=== PATIENT | male | born 1960 | race Caucasian/White ===

== ENCOUNTER 2025-02-07 12:40 | Emergency (ER) | payer OTHER, SELFPAY ==
[2025-02-07 12:47] VITALS: BP 123/93
[2025-02-07 13:03] VITALS: BMI 24.4
--- NOTE | 2025-02-07 13:18 | ED.GENMED ---
History of Present Illness
General
Chief Complaint: Head Injury
Source: patient
Exam Limitations: none
Time Seen by Provider: 02/07/25 13:04
Nursing documentation reviewed up to this point in time: agreed with
History of Present Illness
History of Present Illness:
Patient is a 65-year-old male who denies significant past medical history who presents to the emergency department accompanied by his son from home for evaluation of a head injury that occurred approximately 30 minute prior to arrival. Patient
reports that he was walking on the sidewalk and fell off of the edge accidentally. Patient reports that he did try to brace himself with his left arm but was unsuccessful in doing so and he hit his left forehead. Patient sustained a laceration to
the left forehead which is not actively bleeding. Patient reports some pain at the site. He denies headache otherwise, dizziness, vision changes such as blurry vision or double vision, neck pain, back pain, nausea, vomiting. Patient reports that
he does have some soreness to his left shoulder and left wrist but reports it is improving and he has full range of motion. Patient is unsure whether his tetanus is UTD. Patient denies taking medication for pain prior to arrival. Patient reports
he is getting on a plane to [facility] at 9pm tonight.
Past History
Past History
ED Past Medical History: None
ED Past Surgical History: Other (Excision of benign tumor left leg)
Social History
Tobacco: Non-smoker
Alcohol: Daily
Drug: None
Personal:
Review of Systems
Review of Systems
Allergies reviewed?: Yes
All Other Systems: ROS reviewed and negative except as documented in HPI and ROS
Constitutional: Reports no symptoms
EENT: Reports no symptoms
Respiratory: Reports no symptoms
Cardiac: Reports no symptoms
ABD/GI: Reports no symptoms
: Reports no symptoms
Musculoskeletal: Reports no symptoms
Skin: Reports other (laceration)
Neurological: Reports no symptoms; Denies dizzy or headache
Endocrine: Reports no symptoms
Hematologic/Lymphatic: Reports no symptoms
Psychiatric: Reports no symptoms
Phy Exam
General Physical Exam
General Presentation: well appearing and no apparent distress
General Skin: warm and dry
General Habitus: normal
General Mental: alert
General Hydration: appears well hydrated
ENT Exam
ENT Exam: EOMI, pharynx normal and normocephalic
Eye Exam
Eye Exam: PERRL, cornea clear and conjunctiva normal
Cardiovascular Exam
Cardiovascular Exam: regular rate/rhythm, no edema, no murmur and normal peripheral pulses
Pulmonary Exam
Pulmonary Exam: lungs clear, no respiratory distress, no rales, no crackles, no rhonchi, no stridor, no wheezing and no cough
Gastrointestinal Exam
Gastrointestinal Exam: non tender and soft
Neurological Exam
Neurological Exam: alert, oriented x3, no motor deficits and speech normal
Musculoskeletal Exam
Musculoskeletal Exam: full ROM and no edema
Skin Exam
Skin Exam: normal color, warm/dry, no rash, no petechia and other (0.5cm linear laceration just superior to the left eyebrow, mild oozing of blood)
Psychiatric Exam
Psychiatric Exam: normal mood/affect
Course
Orders/Labs/Results
Orders:
Orders
02/07/25 13:17
CT Head W/o Iv Contrast Urgent
Comment:
Reason For Exam: head injury, no LOC
Tetanus/Diphth/Acelpertussis [Adacel] 0.5 ml IM .ONCE ONE
Vital Signs
Initial and Last Documented VS:
Initial Vital Signs
Temp Pulse Resp BP Pulse Ox
98.3 F 74 18 123/93 98
02/07/25 12:47 02/07/25 12:47 02/07/25 12:47 02/07/25 12:47 02/07/25 12:47
Last Documented Vital Signs
Temp Pulse Resp BP Pulse Ox
98.3 F 74 18 123/93 98
02/07/25 12:47 02/07/25 12:47 02/07/25 12:47 02/07/25 12:47 02/07/25 13:20
Procedures
Laceration Closure
Left Forehead:
Status of Wound: clean
Description of Wound Edges: sharp
Preparation: cleaned with saline
Revision/Debridement: routine- no revision
Wound exploration: explored to base- no FB
Type of Closure: single layer closure
Skin Closure Material: other (surgical glue with one steri-strip)
*Pulse Oximetry
SaO2: 98
Oxygen Mode of Delivery: Room air
Patient hypoxic: no
*Critical Care Note
Total Time (30-74mins, 75-104mins- exclusive of procedures): Not Applicable
Update Note
Update Note:
65-year-old male presents to the emergency department for evaluation of a left forehead laceration sustained just prior to arrival. Patient did fall and hit his head. Patient is not anticoagulated and denies LOC. Patient also notes injury to his
left shoulder and wrist but reports he has full range of motion of both. On arrival, patient's vital signs are stable, he is afebrile. On examination, patient is very well-appearing, he is in no acute distress, his laceration is small, he has
underlying hematoma, he has no neurological deficits, he has full range of motion of the left upper extremity and is neurovascularly intact. I spoke with the patient about risks and benefits of CT of the head given his fall and head injury.
Patient states that he is getting on a plane to [facility] at 9 PM this evening. Therefore, we will check a CT of the head to ensure no intracranial hemorrhage or calvarial fracture which could complicate his travel. Patient is also unsure of the
date of his last tetanus therefore will update today. Will perform primary closure of the left forehead wound.
CT of the head demonstrates no acute abnormality, patient made aware. Tetanus was updated. Laceration was repaired as documented. Patient is safe for discharge to home with instructions on supportive care measures along with return precautions.
Patient and his son expressed understanding of the plan and agreed.
ED Attending Note
-
Portions of this chart may have been created with voice recognition software.� Occasional wrong word or��sound alike� substitutions may have occurred due to the inherent limitations of voice recognition software.
Discharge Plan
Departure
Patient Disposition: Home (Routine Discharge)
Date of Disposition: 02/07/25
Time of Disposition: 14:31
Patient with high blood pressure during this ER visit?: No
Condition: Good
Covid-19: Not Applicable
Discharge Problem:
Fall, Closed head injury, Forehead laceration, Contusion of left shoulder, Contusion of left wrist
Instructions: Laceration Repair With Glue (DC), Head Injury in Adults (DC), Contusion (DC)
Activity Restrictions/Additional Instructions:
You were seen in the emergency department for evaluation following a fall. While you were in the emergency department you had a CT scan of your brain which shows no dangerous abnormality such as bleeding inside the brain or a skull fracture. Your
tetanus was updated today. Your laceration was repaired with surgical glue. Please avoid getting the area wet but keep it clean and dry. The glue will fall off on its own over the next week or so. Please return to the nearest emergency
department if you develop increasing headache, dizziness, vision changes such as blurry vision or double vision, nausea, vomiting, drainage of pus, fever greater than 100.4 �F, or for any other worsening or concerning symptoms.
Interventions
Interventions:
*Risk Screen - Suicide Last Done: 02/07/25 12:47
*General Assessment Last Done: 02/07/25 13:03
*Neglect/Abuse Screening Last Done: 02/07/25 13:03
*ED- Fall Risk Assessment Last Done: 02/07/25 13:03
*ED COVID-19 Vaccine History Last Done: 02/07/25 13:03
ED- Neurological Assessment Last Done: 02/07/25 13:05
ED-Skin Assessment Last Done: 02/07/25 13:05
Discharge Date and Time
Print Language: SYRIAC
[2025-02-07] MEDS: ADACEL 0.5 ML IM (13:20)
== END 2025-02-07 14:46 | disposition home or self-care (01) ==
LOC: EMR 12:40
PROVIDERS: EMERGENCY PHYSICIAN Emergency Medicine
DX: S09.90XA Unspecified injury of head, initial encounter (principal); S01.81XA Laceration without foreign body of other part of head, initial encounter; S40.012A Contusion of left shoulder, initial encounter; S60.212A Contusion of left wrist, initial encounter; W01.198A Fall on same level from slipping, tripping and stumbling with subsequent striking against other object, initial encounter; Y92.480 Sidewalk as the place of occurrence of the external cause; Y93.01 Activity, walking, marching and hiking; Z23 Encounter for immunization
CPT/HCPCS: 99284; 90471; 70450; 90715